=== PATIENT | female | born 1985 | race Two or more races ===

== ENCOUNTER 2024-08-18 15:40 | Emergency (ER) | payer OTHER, SELFPAY ==
[2024-08-18 15:40] VITALS: BMI 26.5
[2024-08-18 15:48] VITALS: BP 158/90; PULSE 73; RESP 18; TEMP 37; O2SAT 98
--- NOTE | 2024-08-18 15:49 | XR_ITS ---
Examination: CT brain head without contrast. 2-D sagittal coronal reconstructions Date and time of exam:August 18, 2024 1413 hours INDICATIONS: Headaches beginning 4 weeks ago CTDI: vol (mGy):45.3 DLP: (mGycm):884 Technique: Multiple CT axial sections of the brain have been obtained, 5 mm slice thickness. Contrast has not been administered. 2-D sagittal, coronal reconstructions have been obtained Low dose protocols were performed. One or more of the following dose reduction techniques were used; automated exposure control, adjustment of the mA and/or KV according to patient size, use of iterative reconstruction technique. Findings: No significant ventricular enlargement. Intra-axial or extra-axial hemorrhage density is not seen. No mass effect or midline shift Basal cisterns are not remarkable. Fourth ventricle is midline. Cranial vault intact. Impression: Negative for acute hemorrhage, mass effect or midline shift Mild acute right maxillary sinusitis
--- NOTE | 2024-08-18 15:50 | PD.EDRME ---
Rapid Medical Screening Exam RME Arrival date/time: 08/18/24 15:40 39-year-old female presents emergency department complains of headache ongoing for the last 4 weeks Chief Complaint: Headache Time Seen by Provider: 08/18/24 15:46 Vital signs: Vital Signs Temperature 98.6 F 08/18/24 15:48 Pulse Rate 73 08/18/24 15:48 Respiratory Rate 18 08/18/24 15:48 Blood Pressure 158/90 H 08/18/24 15:48 Pulse Oximetry (%) 98 08/18/24 15:48 Oxygen Delivery Method Room Air 08/18/24 15:48
[2024-08-18] MEDS: HYDROcodone/APAP 5/325 TABLET 1 TAB PO (15:53)
[2024-08-18] MEDS: DiphenhydrAMINE 25 MG CAPSULE PO (15:54)
[2024-08-18] MEDS: METOCLOPRAMIDE 5 MG TABLET 10 MG PO (15:54)
[2024-08-18 16:34] LABS: Basophils % (Auto) 0 % (0-2.5); Eosinophils # (Auto) 0.1 Thou/mm3 (0.0-0.5); Eosinophils % (Auto) 1 % (0-10); Hematocrit 41.5 % (36.0-46.0); Immature Granulocytes % (Auto) 0 % (0-0); Immature Granulocytes Auto 0.03 Thou/mm3 (0.00-0.00); Lymphocytes # (Auto) 2.4 Thou/mm3 (1.0-4.8); Lymphocytes % (Auto) 21 % (10-50); Mean Corpuscular HGB Conc 33.7 g/dl (31.0-37.0); Mean Corpuscular Hemoglobin 28.9 pg (25.0-35.0); Mean Corpuscular Volume 86 fL (80-100); Monocytes # (Auto) 0.8 Thou/mm3 (0.0-0.8); Monocytes % (Auto) 7 % (0-12); Neutrophils # (Auto) 8.3 Thou/mm3 (1.8-7.7); Neutrophils % (Auto) 71 % (37-80); Nucleated Red Blood Cell % 0 /100 WBC (0); Platelet Count 284 Thou/mm3 (140-440); RDW Standard Deviation 40.8 fL (36.4-46.3); Red Blood Count 4.85 Miln/mm3 (4.00-5.20); White Blood Count 11.6 Thou/mm3 (3.6-11.0)
[2024-08-18 16:53] LABS: HCG,Qualitative Serum Negative
[2024-08-18 16:56] LABS: Alanine Aminotransferase 13 U/L (10-49); Albumin, Serum 5.3 gm/dL (3.5-5.0); Alkaline Phosphatase 116 U/L (46-116); Anion Gap 8 (7-16); BUN/Creatinine Ratio 10 Ratio (12-20); Bilirubin,Total 0.4 mg/dL (0.3-1.2); Blood Urea Nitrogen 9 mg/dL (9-23); Calcium 9.6 mg/dL (8.3-10.6); Calcium (Corrected) 9.6 mg/dL (8.5-10.1); Carbon Dioxide 24.3 mMol/L (20.0-31.0); Chloride 105 mMol/L (98-107); Creatinine (Component) 0.9 mg/dL (0.6-1.3); Estimated Creatinine Clearance 78.5 mL/min (>60); Globulin 2.6 gm/dL (2.3-3.5); Glucose 90 mg/dL (74-106); Osmolality,Calculated 272 (275-295); Sodium 137 mMol/L (136-145); Total Protein 7.9 gm/dL (5.7-8.2); eGFR > 60 See Note
[2024-08-18 17:07] LABS: Aspartate Amino Transferase 17 U/L (0-34)
--- NOTE | 2024-08-18 17:19 | PD.EDHA ---
ED Headache RME/HPI General Chief Complaint: Headache Stated Complaint: HEADACHE X4WK, NAUSEA AND DIZZINESS Time Seen by Provider: 08/18/24 15:46 Arrival date/time: 08/18/24 15:40 39-year-old female presents to the emergency department complains of headaches x 4 weeks patient also reports intermittent nausea and dizziness. Patient reports no fever or vomiting patient reports no neck pain or recent injury. Patient reports prior episodes of the same Limitations: no limitations RME / HPI RME / HPI Narrative: 08/18/24 15:40 39-year-old female presents emergency department complains of headache ongoing for the last 4 weeks Related Data Home Medications ?Medication ?Instructions ?Recorded ?Confirmed albuterol 90 mcg/actuation aerosol 1 mcg inhalation PRN PRN Adequate 01/06/22 01/06/22 inhaler Ventilation prenat.vits,emmie,[id number] 1 tab PO QDAY 01/06/22 01/06/22 Previous Rx's ?Medication ?Instructions ?Recorded ibuprofen 800 mg tablet 800 mg PO Q8H PRN pain #30 tabs 01/06/22 amoxicillin 875 mg-potassium 1 tab PO BID 7 days #14 tabs 08/18/24 clavulanate 125 mg tablet hydrocodone 5 mg-acetaminophen 325 1 tab PO BID PRN pain #6 tabs 08/18/24 mg tablet ibuprofen 600 mg tablet 600 mg PO Q6H #30 tabs 08/18/24 Allergies Allergy/AdvReac Type Severity Reaction Status Date / Time No Known Allergies Allergy Verified 08/18/24 15:44 Review of Systems Review of Systems Systems Reviewed: All systems reviewed, normal except as documented Constitutional Constitutional: Reports system reviewed and no additional complaints, except as documented, Denies fever(s) and Reports headache(s) Eyes Eyes: Reports system reviewed and no additional complaints, except as documented and Denies blurry vision ENT Ears, Nose, Mouth, and Throat: Reports system reviewed and no additional complaints, except as documented, Reports headache(s), Denies nasal congestion and Denies nasal discharge Cardiovascular Cardiovascular: Reports system reviewed and no additional complaints, except as documented, Denies chest pain and Denies dyspnea Respiratory Respiratory: Reports system reviewed and no additional complaints, except as documented, Denies chest congestion, Denies cough and Denies dyspnea Gastrointestinal Gastrointestinal: Reports system reviewed and no additional complaints, except as documented and Denies abdominal pain Integumentary/Breasts Skin/Breast: Reports system reviewed and no additional complaints, except as documented and Denies rash Neurologic Neurologic: Reports system reviewed and no additional complaints, except as documented, Reports as per HPI and Reports headache(s) Past Medical History Past Medical History CARDIAC: Negative Congestive Heart Failure RESPIRATORY: Positive Asthma; Negative Chronic Obstructive Pulmonary Disease (COPD) GENITOURINARY: Negative Renal Disease ENDOCRINE: Negative Diabetes Mellitus Type 1 or Diabetes Mellitus Type 2 Social History SMOKING STATUS: Never smoker ED Exam General Limitations: Present no limitations General appearance: Present alert and in no apparent distress Head Head exam: Present atraumatic Eye Eye exam: Present normal appearance, PERRL and EOMI ENT ENT exam: Present normal exam, normal oropharynx and mucous membranes moist Neck Neck exam: Present normal inspection, full ROM and trachea midline Chest Chest inspection: Present normal inspection and symmetric chest wall rise Respiratory Respiratory exam: Present normal lung sounds bilaterally Cardiovascular Cardiovascular exam: Present regular rate, normal rhythm and normal heart sounds Abdominal Exam Abdominal exam: Present soft and normal bowel sounds Extremities Exam Extremities exam: Present normal inspection and full ROM Back Exam Back exam: Present normal inspection and full ROM Neurological Exam Neurological exam: Present alert, oriented X3, CN II-XII intact, normal gait and reflexes normal; Absent motor sensory deficit Psychiatric Psychiatric exam: Present normal affect and normal mood Skin Skin exam: Present warm, dry, intact and normal color Course Quality Measures none Orders Category Date Time Status CT head/brain wo con Stat Exams 08/18/24 15:49 Completed CBC Stat Lab 08/18/24 16:27 Completed CMP [Comprehensive Metabolic Panel] Stat Lab 08/18/24 16:27 Completed HCG,Qualitative Serum Stat Lab 08/18/24 16:27 Completed DiphenhydrAMINE [Benadryl] Med 08/18/24 15:49 Discontinued 25 mg PO X1 ONE HYDROcodone*/APAP 5/325 [[place] 5/325] Med 08/18/24 15:49 Discontinued 1 tab PO X1 ONE Metoclopramide [Reglan] Med 08/18/24 15:49 Discontinued 10 mg PO X1 ONE Vital Signs Vital signs: Vital Signs Temperature 98.6 F 08/18/24 15:48 Pulse Rate 73 08/18/24 15:48 Respiratory Rate 18 08/18/24 15:48 Blood Pressure 158/90 H 08/18/24 15:48 Pulse Oximetry (%) 98 08/18/24 15:48 Oxygen Delivery Method Room Air 08/18/24 15:48 o2 sat 98% r/a wnl Headache MDM Narrative MDM Narrative:: 39-year-old female presents to the emergency department complains of headaches x 4 weeks patient also reports intermittent nausea and dizziness. Patient reports no fever or vomiting patient reports no neck pain or recent injury. Patient reports prior episodes of the same On exam patient well-appearing patient does not appear ill or toxic patient does not appear in acute distress Lab work as well as CT scan obtained no acute emergent findings noted Patient medicated here reports medication did improve her symptoms Patient discharged home in no distress to follow-up with primary care doctor in the next 24 to 48 hours and for any worsening symptoms to return to the ER immediately Patient data External records reviewed:: [facility] previous records Clinical information provided by:: patient Social determinants that could affect healthcare access:: none Patient has the following chronic illnesses:: none How is presenting disease/condition affected by chronic disease/condition?: no chronic disease Evaluation data The following diagnostics were reviewed and interpreted by me:: lab results and radiology exam(s) Lab and/or radiology exams considered but not ordered:: labs and rad obtained Interpretation Summary: reviewed by me Medications / Prescriptions Medications or Prescriptions considered but not ordered:: given Medication administrations:: Medication Administration History Discontinued Medications Hydrocodone Bitart/Acetaminophen (Hydrocodone/Apap 5/325 Tablet) 1 tab PO X1 ONE Stop: 08/18/24 15:50 Last Admin: 08/18/24 15:53 Dose: 1 tab Documented By: SHELLY Diphenhydramine HCl (Diphenhydramine 25 Mg Capsule) 25 mg PO X1 ONE Stop: 08/18/24 15:50 Last Admin: 08/18/24 15:54 Dose: 25 mg Documented By: SHELLY Metoclopramide HCl (Metoclopramide 5 Mg Tablet) 10 mg PO X1 ONE Stop: 08/18/24 15:50 Last Admin: 08/18/24 15:54 Dose: 10 mg Documented By: SHELLY given Consultations Consultation(s) initiated? (list below): No Diagnosis Differential diagnosis headache: migraine, tension headache, subarachnoid hemorrhage and headache Most likely diagnosis given after review of the tests above:: headache Admission Indicated Admission indicated?: not indicated Admission Request Was there a request for admission?: No Disposition Plan Disposition Plan: Discharge Discharge Attestation Discharge Attestation: The patient and all family members were given an opportunity to ask questions and understood the discharge instructions. Discharge instructions specifically effects, indications for sooner follow up or return to the emergency department, and the expected course of current diagnosis. Patient condition: Stable Discharge Plan Plan Patient Disposition: HOME (Self Care) Disposition Comment: Stable Prescriptions/Referrals Prescriptions/Med Rec: New hydrocodone-acetaminophen 5-325 mg tablet 1 tab PO BID MDD 10 PRN (Reason: pain) Qty: 6 0RF ibuprofen 600 mg tablet 600 mg PO Q6H Qty: 30 0RF amoxicillin-pot clavulanate 875-125 mg tablet 1 tab PO BID 7 Days Qty: 14 0RF No Action albuterol 90 mcg/actuation Aerosol 1 mcg INHALATION PRN PRN (Reason: Adequate Ventilation) prenat.vits,emmie,[id number]-igfs-kyqbn Tablet 1 tab PO QDAY ibuprofen 800 mg tablet 800 mg PO Q8H PRN (Reason: pain) Qty: 30 0RF Referrals: Briseida Perla MD [Primary Care Provider] - 08/19/24 Problem List Clinical Impression: Headache Patient/Caregiver Discharge Instructions Education Materials: Self-Care for Headaches Additional Instructions: Please follow up with your primary care doctor in the next 24-48hrs for any worsening symptoms return here immediately Print Language: Urdu Stand Alone Forms: Jillian Award Info., Patient Portal Info Letter PA/HOUSEHOLD APPLIANCES SALESPERSON Supervising Physician PA/HOUSEHOLD APPLIANCES SALESPERSON Supervising Physician: Dr Radha SILVA Attestation MD Attestation The patient was seen by the midlevel practitioner. I, the co-signing physician, was present during the entire ER visit. While I did not physically examine the patient, I was available for consultation as needed.
== END 2024-08-18 17:30 | disposition home or self-care (01) ==
PROVIDERS: Nurse Practitioner Primary Care; Emergency Provider Emergency Medicine; PCP Pediatrics
DX: R51.9 Headache, unspecified (principal)
CPT/HCPCS: 36415; 70450; 80053; 84703; 85025; 99284; A9270

== ENCOUNTER → 2024-10-19 | Outpatient (CLI) | payer OTHER, SELFPAY ==
[2024-10-19 10:20] LABS: Basophils % (Auto) 0 % (0-2.5); Eosinophils # (Auto) 0.3 Thou/mm3 (0.0-0.5); Eosinophils % (Auto) 4 % (0-10); Hematocrit 42.3 % (36.0-46.0); Hemoglobin 13.9 g/dL (12.0-16.0); Immature Granulocytes % (Auto) 0 % (0-0); Immature Granulocytes Auto 0.02 Thou/mm3 (0.00-0.00); Lymphocytes # (Auto) 1.7 Thou/mm3 (1.0-4.8); Lymphocytes % (Auto) 27 % (10-50); Mean Corpuscular HGB Conc 32.9 g/dl (31.0-37.0); Mean Corpuscular Hemoglobin 28.2 pg (25.0-35.0); Mean Corpuscular Volume 86 fL (80-100); Monocytes # (Auto) 0.4 Thou/mm3 (0.0-0.8); Monocytes % (Auto) 7 % (0-12); Neutrophils # (Auto) 3.9 Thou/mm3 (1.8-7.7); Neutrophils % (Auto) 62 % (37-80); Nucleated Red Blood Cell % 0 /100 WBC (0); Platelet Count 343 Thou/mm3 (140-440); RDW Standard Deviation 41.5 fL (36.4-46.3); Red Blood Count 4.93 Miln/mm3 (4.00-5.20); White Blood Count 6.3 Thou/mm3 (3.6-11.0)
[2024-10-19 10:39] LABS: Alanine Aminotransferase 16 U/L (10-49); Albumin, Serum 4.9 gm/dL (3.5-5.0); Albumin/Globulin Ratio 2.1 (1.2-2.2); Alkaline Phosphatase 116 U/L (46-116); Anion Gap 9 (7-16); Aspartate Amino Transferase 13 U/L (0-34); BUN/Creatinine Ratio 16 Ratio (12-20); Bilirubin,Total 0.6 mg/dL (0.3-1.2); Blood Urea Nitrogen 13 mg/dL (9-23); Calcium 9.5 mg/dL (8.3-10.6); Calcium (Corrected) 9.5 mg/dL (8.5-10.1); Carbon Dioxide 25.4 mMol/L (20.0-31.0); Cardiac Risk Estimate 4.1 RATIO (3.7-5.6); Chloride 106 mMol/L (98-107); Cholesterol 196 mg/dL (132-200); Creatinine (Component) 0.8 mg/dL (0.6-1.3); Free T4 (Free Thyroxine) 1.09 ng/dL (0.89-1.76); Globulin 2.3 gm/dL (2.3-3.5); Glucose 88 mg/dL (74-106); HDL Cholesterol 48 mg/dL (40-60); LDL Cholesterol,Calculated 130 mg/dL (0-130); Magnesium 2.2 mg/dL (1.6-2.6); Osmolality,Calculated 278 (275-295); Potassium 4.4 mMol/L (3.4-5.1); Sodium 140 mMol/L (136-145); Thyroid Stimulating Hormone 1.73 uIU/mL (0.55-4.78); Total Protein 7.2 gm/dL (5.7-8.2); Triglycerides 88 mg/dL (30-150); eGFR > 60 See Note
[2024-10-19 10:47] LABS: Vitamin B12 > 2000 pg/mL (211-911); Vitamin D 25 Hydroxy Total 54.2 ng/mL (7.3-40.2)
[2024-10-19 11:08] LABS: Glucose Estimated Average 100 mg/dL (80-131); Hemoglobin A1C 5.1 % Hgb (4.8-6.0)
== END | disposition home or self-care (01) ==
LOC: COPL 08:41
PROVIDERS: PCP Internal Medicine; Referring Provider Internal Medicine; Visit Provider Internal Medicine
DX: Z00.00 Encounter for general adult medical examination without abnormal findings (principal); E55.9 Vitamin D deficiency, unspecified
CPT/HCPCS: 36415; 80053; 80061; 82306; 82607; 83036; 83735; 84439; 84443; 85025

== ENCOUNTER → 2024-12-07 | Outpatient (CLI) | payer OTHER, SELFPAY ==
[2024-12-07 12:03] LABS: HCG Qualitative,Urine Negative
--- NOTE | 2024-12-07 12:45 | XR_ITS ---
Examination: MRI of brain without intravenous contrast. MRI brain with intravenous contrast. Date and time of exam:December 07, 2024 1324 hrs. Indications: Headache dizziness beginning August 2024 Technique: Multiple axial and sagittal images of the brain to been obtained. Siemens high-resolution 1.52 [place] short bore scanner utilized. Sagittal sections, T1 weighted images, TR 500, TE 14, are performed. Axial sections proton-density and T2-weighted images have been obtained. Inversion recovery axial images, TR 9260, TE 111, TR 2500. Diffusion weighted images, axial sections, TR 4800, TE 128, B value 1000. Axial sections, ADC map, TR 4800, TE 128. Axial and coronal images were also obtained post 13 cc gadolinium administered intravenously. Findings:: Enlargement of the sella turcica is not present. The optic chiasm and infundibular stalk are not remarkable. There is no localized enlargement of the medulla or mary. Fourth ventricle and cerebellar tonsils appear normal in position. No subacute area of hemorrhage density is seen. Fourth ventricle is midline. Mass in the cerebellopontine angle region is not evident. 7th and 8th nerve complexes exhibit symmetry Globes are symmetrical Orbital musculature including medial lateral rectus muscles do not exhibit abnormality Increased white matter signal is not seen Effacement of the cortical sulcal markings is not identified. Mass effect upon the ventricular system is not identified. Diffusion-weighted images demonstrate no focus of restricted diffusion Contrast images demonstrate no abnormal enhancement Impression: Negative for acute hemorrhage mass effect or midline shift No acute infarct No findings diagnostic for demyelinating disease Mild chronic ethmoid sinusitis
== END | disposition home or self-care (01) ==
LOC: SMRI 11:18
PROVIDERS: PCP Internal Medicine; Referring Provider Internal Medicine; Visit Provider Internal Medicine
DX: J32.2 Chronic ethmoidal sinusitis (principal)
CPT/HCPCS: 70553; 81025; A9579

== ENCOUNTER 2025-03-02 05:40 | Day surgery (SDC) | payer OTHER, SELFPAY ==
--- NOTE | 2025-02-26 18:20 | ESHP_ITS ---
RE: IRENA JEREZ : 1985 DATE OF ADMISSION: 03/02/2025 DATE OF SURGERY: 03/02/2025 HISTORY OF PRESENT ILLNESS: This is a 39-year-old 3, para 3 who is multiparous and desires voluntary sterilization. MEDICATIONS: Depo-Provera 150 mg IM every 3 months. PAST MEDICAL HISTORY: Asthma, breast cysts. SOCIAL HISTORY: She is . She denies any alcohol, drug use, or smoking. FAMILY HISTORY: Hypertension, COPD, pancreatic cancer, congenital heart disease. OBSTETRIC HISTORY: Three previous full-term normal vaginal deliveries. PAST SURGICAL HISTORY: Denies. REVIEW OF SYSTEMS: She denies any chest pain, palpitations, cough, fever, shortness of breath, or lower extremity pain. PHYSICAL EXAMINATION: VITAL SIGNS: Blood pressure 118/84, heart rate 96, respirations 18, temperature 98.2, weight 154 pounds. HEENT: Oropharynx and sclerae are clear. LUNGS: Clear to auscultation bilaterally. HEART: Regular rate and rhythm. ABDOMEN: Nontender. No scars noted. EXTREMITIES: Nontender. SKIN: No gross rashes or lesions. NEUROLOGIC: No focal deficits. ASSESSMENT: Multiparous, desires voluntary sterilization. PLAN: Laparoscopic bilateral salpingectomy. Informed consent was obtained. The patient was made aware of the risks, complications, alternatives, and benefits of the proposed procedure and she agrees. She is aware of the failure rate and the increased risk of tubal ectopic gestation if occurs. She is aware of the reversal methods of control and she declines these methods. She is aware that vasectomy is simpler, easier, safer, less risky, and has a lower failure rate, but her male partner declines that option. She is aware of the risk of injury to bowel or bladder, uterus, ureters, adjacent organs, pulmonary embolism, deep vein thrombosis, injury to the vessels of the abdominal wall, hematoma, abscess, wound infection, wound dehiscence, pelvic infection, reoperation to repair injury to internal organs, anesthesia complications, the possibility that a laparotomy needs to be performed to complete the procedure or control bleeding, and the possibility that the procedure is not able to be completed due to severe adhesions or technical difficulties. DT: 17:59:22 TT: 18:19:00 Ref: [id number] - TID: [id number] MTDD
[2025-03-01 09:01] VITALS: BMI 27.6
[2025-03-01 09:41] LABS: Basophils % (Auto) 0 % (0-2.5); Eosinophils # (Auto) 0.2 Thou/mm3 (0.0-0.5); Eosinophils % (Auto) 3 % (0-10); Hematocrit 40.3 % (36.0-46.0); Hemoglobin 13.4 g/dL (12.0-16.0); Immature Granulocytes % (Auto) 0 % (0-0); Immature Granulocytes Auto 0.02 Thou/mm3 (0.00-0.00); Lymphocytes % (Auto) 29 % (10-50); Mean Corpuscular HGB Conc 33.3 g/dl (31.0-37.0); Mean Corpuscular Hemoglobin 28.4 pg (25.0-35.0); Mean Corpuscular Volume 85 fL (80-100); Monocytes # (Auto) 0.5 Thou/mm3 (0.0-0.8); Monocytes % (Auto) 7 % (0-12); Neutrophils # (Auto) 4.2 Thou/mm3 (1.8-7.7); Neutrophils % (Auto) 60 % (37-80); Nucleated Red Blood Cell % 0 /100 WBC (0); Platelet Count 291 Thou/mm3 (140-440); RDW Standard Deviation 40.8 fL (36.4-46.3); Red Blood Count 4.72 Miln/mm3 (4.00-5.20)
[2025-03-01 09:50] LABS: Partial Thromboplastin Time 28.2 Seconds (22.0-36.0); Prothrombin Time 10.9 Seconds (9.0-12.2)
[2025-03-01 10:02] LABS: Alanine Aminotransferase 11 U/L (10-49); Albumin, Serum 4.5 gm/dL (3.5-5.0); Albumin/Globulin Ratio 2.3 (1.2-2.2); Alkaline Phosphatase 105 U/L (46-116); Anion Gap 8 (7-16); Aspartate Amino Transferase 15 U/L (0-34); BUN/Creatinine Ratio 17 Ratio (12-20); Beta HCG,Quantitative < 1 mIU/mL (<5.0); Bilirubin,Total 0.4 mg/dL (0.3-1.2); Blood Urea Nitrogen 12 mg/dL (9-23); Calcium 9.1 mg/dL (8.3-10.6); Calcium (Corrected) 9.1 mg/dL (8.5-10.1); Chloride 105 mMol/L (98-107); Creatinine (Component) 0.7 mg/dL (0.6-1.3); Estimated Creatinine Clearance 102.8 mL/min (>60); Glucose 91 mg/dL (74-106); Osmolality,Calculated 277 (275-295); Potassium 4.1 mMol/L (3.4-5.1); Sodium 139 mMol/L (136-145); Total Protein 6.5 gm/dL (5.7-8.2); eGFR > 60 See Note
[2025-03-02] VITALS (7 sets, daily range): BP systolic 111–128; BP diastolic 69–89; PULSE 81–100; RESP 12–18; TEMP 36.6–36.9; O2SAT 98–100; BMI 27.3
--- NOTE | 2025-03-02 08:33 | SUR.PHASEI ---
0833: Pt. wakes to name then drifts back to sleep, vitals stable, breathing unlabored, no complaint of pain or nausea, x3 dermabond sites to ABD CDI, peripad in place CDI, no active bleed noted, report recieved from Lucas YIN and MD Wetzel.
--- NOTE | 2025-03-02 08:41 | ESOP_ITS ---
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 She is placed in the dorsal lithotomy position and prepped and draped in usual sterile fashion. A timeout was performed. A bivalve speculum was placed in vagina single-tooth tenaculum was used to grasp the anterior by the cervix the acorn uterine manipulator was placed the bivalve speculum was removed. The physician regowned and gloved. And a 5 mm incision was made in the umbilical fold. With tenting of the abdomen a Veress needle was inserted. Saline confirmed intra- abdominal placement. An artificial pneumoperitoneum was created to 12 mmHg. The Veress needle was then removed. A 5 mm trocar was inserted with tenting of the abdomen. The laparoscope connected to the video camera was then utilized to visualize the pelvis. A second incision was made in the midline 2 cm above the symphysis pubis. Through this 5 mm incision a 5 mm trocar was inserted under direct visualization a laparoscope. In the left lower quadrant a 5 mm incision was made and through this 5 mm incision a 5 mm trocar was inserted under direct visualization of the laparoscope. Using the uterine manipulator and Brooks Geck grasper the right fallopian tube was grasped at the fimbriated end. And using the 1136 harmonic scalpel a right salpingectomy was performed. Hemostasis was achieved. Specimen sent to pathology. Attention was then turned to the left fallopian tube which was grasped at the fimbriated end and using the harmonic scalpel 1136 a left salpingectomy was performed. Hemostasis was achieved. The specimen was sent to pathology. There was no bleeding at the end of the procedure. A photographic record was obtained. All instruments removed from the abdomen carbon oxide was removed from the peritoneal cavity. The incisions were infiltrated with Marcaine half percent with epinephrine. And closed with 4-0 Monocryl and covered with Dermabond. Attention was then turned to the vagina where the uterine manipulator was removed. All instruments were removed from the vagina. There was no bleeding at the end of procedure. She was noted to have a rash consistent with urticaria in the abdomen and a pattern consistent with exposure to the ChloraPrep. She received Decadron and the rash resolved. She was reversed from general anesthesia in supine position and transferred recovery room in stable condition she Toller procedure well counts were correct I discussed with the patient's daughter the nature of her condition and the intraoperative findings expectation for recovery all questions answered and daughter is aware of the rash and the need for the patient to continue to take prednisone and Benadryl in the next 5 days of her recovery. Specimen: left tube and right tube Estimated blood loss (ml): 5 Findings: Normal-appearing uterus ovaries and fallopian tubes Complications: other (Urticaria after exposure to ChloraPrep) Surgical staff Operation Date: 03/02/25 07:30 Case Staff Anesthesiologist: Elijah Wetzel RN First Assistant: Jessica Mcdonald Diagnosis Discharge Diagnosis (1) Sterilization: Status: Acute (2) Urticaria due to drug allergy: Status: Acute Problem List Completed Was Problem List Reviewed/Reconciled?: Yes
--- NOTE | 2025-03-02 09:25 | SUR.PHASEII ---
0925: Pt. AAOx4, vitals stable, breathing unlabored, no complaint of pain or nausea, x3 dermabond sites to ABD CDI, peripad in place CDI, no active bleed noted. Pt. tolerated sips of water well, pt. ambulated to wheelchair with steady gait and no assist, no complications. Gave discharge instructions to the pt. and her ride, both verbalized understanding and had no further questions. Pt. left with all personal belongings.
== END 2025-03-02 09:25 | disposition home or self-care (01) ==
PROVIDERS: PCP Internal Medicine; Referring Provider Specialist; Visit Provider Specialist
PROC: (CPT 58670; principal; 2025-03-02 07:30)
DX: Z30.2 Encounter for sterilization (principal); T50.905A Adverse effect of unspecified drugs, medicaments and biological substances, initial encounter; Z64.1 Problems related to multiparity; L50.0 Allergic urticaria; Z79.3 Long term (current) use of hormonal contraceptives; J45.909 Unspecified asthma, uncomplicated
CPT/HCPCS: 58661; 36415; 80053; 84702; 85025; 85610; 85730; 86850; 86900; 86901; A4217; A4649; J2250; J2704; J3010; J3490; J0665